=== PATIENT | male | born 1980 | race Caucasian/White ===

== ENCOUNTER → 2017-12-30 13:30 | Outpatient (CLI) | payer MEDICARE, SELFPAY ==
[2017-12-30 15:15] LABS: Platelet Count 178 K/mm3 (150-450)
[2017-12-30 15:33] LABS: AST(SGOT) 15 U/L (15-37); Alanine Aminotransfer ALT/SGPT 38 U/L (16-61)
[2017-12-30 15:36] LABS: Valproic Acid (Depakene) Level 50 ug/mL (50-100)
== END ==
PROVIDERS: Visit Provider Psychiatry & Neurology Psychiatry
DX: Z79.899 Other long term (current) drug therapy (principal)
CPT/HCPCS: 36415; 80164; 84450; 84460; 85049

== ENCOUNTER 2017-12-31 14:02 | Emergency (ER) | payer MEDICARE, SELFPAY ==
[2017-12-31 14:02] VITALS: BP 154/94; PULSE 91; RESP 18; TEMP 37.1; O2SAT 94; BMI 42.3
--- NOTE | 2017-12-31 14:28 | ED.DCSUM_ITS ---
- ER Visit Summary Date of Service: 12/31/17 Chief Complaint: Unable to kick respiratory bug History of Present Illness: The patient is a 37 M who is a smoker one half pack per day presents with URI symptoms started 2 weeks ago. He does complain of headache. Denies photophobia. Denies change in vision. Denies earache. Does complain of nasal congestion. Denies sore throat. He states has a cough productive of green colored sputum. He denies any chest pain. He denies dyspnea on exertion. He denies orthopnea PND. He has no GI, or musculoskeletal symptoms. He does complain of generalized weakness. He states he does not have a physician. Physical Examination: Blood pressure is elevated 154/94. Vital signs otherwise are unremarkable. He is not febrile nor is he hypoxic. BMI is 42.3. HEENT exam is remarkable for prominent right eye comparison the left. Pupils equal round reactive. Extra muscle intact. Gaze is conjugate. TMs normal. Nares patent. Posterior pharyngeal erythema XA. Uvula is midline. Trachea is midline. No stridor. There is cervical lymphadenopathy. Heart is regular without murmur, gallop or rub. Lungs are clear to auscultation with good air bilaterally. Abdomen soft nontender. There is no asymmetry, swelling, discoloration, leg vein distention, palpable cords or tenderness along the distribution of the deep venous system. Neuro exam is nonfocal. Test Results: None are indicated Emergency Department Course and Treatment: Patient was informed he has bronchitis. Is in his best interest to quit smoking. Since he does have a productive cough and has been ill for 2 weeks he was placed on doxycycline. Since vital signs i.e. heart rate respiratory rate pulse ox and temperature are normal for literature there is no indication for radiologic imaging. Treatment Plan: Prescription for doxycycline for 7 days. Next field discharged home and referral to Dr. Leighton Kern. Disposition: Discharged home Impression: Purulent bronchitis This note was generated with [employer] dictation software. It may contain incorrect words, spelling, and punctuation that were not noted in review of the chart prior to signing ED Disposition - Plan for ED Patient: Disposition: Home or Assisted Living Chief Complaint: General Illness Instructions: ED Upper Resp Infec Abx Tx Prescriptions: Doxycycline [Vibramycin] 100 mg PO BID #14 cap Referrals: Care Physician,No Primary [Primary Care Provider] - Leighton Kern MD [STAFF PHYSICIAN] - 1 Week if not improving Additional Instructions: It is in your best interest to stop smoking. I recommended throw your pack of cigarettes a away.
[2017-12-31] MEDS: Doxycycline 100 MG CAPSULE PO (14:33)
== END 2017-12-31 14:41 | disposition home or self-care (01) ==
LOC: ED 14:37
PROVIDERS: Emergency Provider Emergency Medicine
DX: J40 Bronchitis, not specified as acute or chronic (principal); E66.9 Obesity, unspecified; Z68.41 Body mass index [BMI] 40.0-44.9, adult; Z72.0 Tobacco use
CPT/HCPCS: 99283

== ENCOUNTER → 2018-06-16 13:43 | Outpatient (CLI) | payer MEDICARE, SELFPAY ==
[2018-06-16 15:10] LABS: Platelet Count 204 K/mm3 (150-450)
[2018-06-16 15:36] LABS: AST(SGOT) 19 U/L (15-37); Alanine Aminotransfer ALT/SGPT 48 U/L (16-61)
[2018-06-16 15:40] LABS: Valproic Acid (Depakene) Level 27 ug/mL (50-100)
== END ==
PROVIDERS: Referring Provider Psychiatry & Neurology Psychiatry; Visit Provider Psychiatry & Neurology Psychiatry
DX: Z79.899 Other long term (current) drug therapy (principal)
CPT/HCPCS: 36415; 80164; 84450; 84460; 85049

== ENCOUNTER → 2018-07-20 13:04 | Outpatient (CLI) | payer MEDICARE, SELFPAY ==
[2018-07-20 14:12] LABS: Valproic Acid (Depakene) Level 64 ug/mL (50-100)
== END ==
PROVIDERS: Referring Provider Psychiatry & Neurology Psychiatry; Visit Provider Psychiatry & Neurology Psychiatry
DX: Z79.899 Other long term (current) drug therapy (principal)
CPT/HCPCS: 36415; 80164

== ENCOUNTER → 2019-01-06 12:11 | Outpatient (CLI) | payer MEDICARE, SELFPAY ==
[2019-01-06 13:07] LABS: Amphetamine Urine VISTA NEGATIVE (<1000 ng/mL); Barbiturate Urine VISTA NEGATIVE (< 200 ng/mL); Benzodiazepine Urine VISTA POSITIVE (< 200 ng/mL); Cocaine Urine VISTA NEGATIVE (< 300 ng/mL); Ecstacy Urine VISTA NEGATIVE (< 500 ng/mL); Methadone Urine VISTA NEGATIVE (< 300 ng/mL); PCP Urine VISTA NEGATIVE (< 25 ng/mL); THC Urine VISTA POSITIVE (< 50 ng/mL); Vista UDS pH Range 5
== END ==
PROVIDERS: Referring Provider Psychiatry & Neurology Psychiatry; Visit Provider Psychiatry & Neurology Psychiatry
DX: F19.10 Other psychoactive substance abuse, uncomplicated (principal); Z79.899 Other long term (current) drug therapy
CPT/HCPCS: 80307

== ENCOUNTER → 2019-01-27 | Outpatient (CLI) | payer MEDICARE, SELFPAY ==
[2019-01-27 13:13] LABS: Platelet Count 207 K/mm3 (150-450)
[2019-01-27 13:43] LABS: Valproic Acid (Depakene) Level 62 ug/mL (50-100)
[2019-01-27 13:46] LABS: AST(SGOT) 12 U/L (15-37); Alanine Aminotransfer ALT/SGPT 31 U/L (16-61)
== END | disposition home or self-care (01) ==
PROVIDERS: Referring Provider Psychiatry & Neurology Psychiatry; Visit Provider Psychiatry & Neurology Psychiatry
DX: Z79.899 Other long term (current) drug therapy (principal)
CPT/HCPCS: 36415; 80164; 82140; 84450; 84460; 85049

== ENCOUNTER 2019-03-30 09:19 | Emergency (ER) | payer MEDICARE, SELFPAY ==
[2019-03-30 09:20] VITALS: BP 157/96; PULSE 115; RESP 16; TEMP 36.4; O2SAT 96; BMI 32.5
--- NOTE | 2019-03-30 09:39 | EKG12_ITS ---
Test Reason : HYPERGLYCEMIA Blood Pressure : / mmHG Vent. Rate : 101 BPM Atrial Rate : 101 BPM P-R Int : 160 ms QRS Dur : 094 ms QT Int : 340 ms P-R-T Axes : 053 -08 030 degrees QTc Int : 440 ms Sinus tachycardia Otherwise normal ECG Confirmed by ANGELA SIERRA ([id number]), order editor ROGER CALLAHAN ([id number]) on 03/31/2019 2:37:01 PM Referred By: JESSE Confirmed By:ANGELA SIERRA
--- NOTE | 2019-03-30 09:41 | ED.DCSUM_ITS ---
History of Present Illness Chief Complaint: Hyperglycemia Informant: Patient, - - Urgent care nurse practitioner Onset: Month(s) - 1 Context: Gradual Onset Timing: Continuous Associated Symptoms: Polydipsia, polyuria, abdominal discomfort Narrative: Patient has been vomiting frequently for the past month and polyuria polydipsia, was seen at urgent care today he has he has no PCP, had significant amount of glycosuria and hyperglycemia on the BGT and was sent to the ER for further evaluation. There is a family history of diabetes he has never been diagnosed with it that he knows of. - Past Medical History (1) Bipolar disorder with psychotic features Status: Chronic Past Medical History - Allergies and Home Meds Allergies/Adverse Reactions: Allergies No Known Allergies Allergy (Verified 03/30/19 09:22) Primary Care Physician: Care Physician,No Primary [Primary Care Provider] - Lives: Alone Smoking Status: Current every day smoker Drugs: None Review of Systems General: Reports: Malaise. Denies: Chills, Fever, Sweats Eyes: Denies: Visual changes - bilaterally, Diplopia ENT: Reports: - - dry mouth. Denies: Rhinorrhea, Sore throat Cardiovascular: Denies: Chest pain, Palpitations Respiratory: Denies: Dyspnea, Cough, Dyspnea on exertion Gastrointestinal: Denies: Abdominal pain, Nausea, Vomiting, Diarrhea, Melena, Hematochezia Genitourinary: Reports: Frequency. Denies: Dysuria, Hematuria Musculoskeletal: Denies: Myalgias, Arthralgias, Neck pain, Back pain, Swelling, Extremity Pain Skin: Denies: Rash, Wounds Neurological: Denies: Headache, Weakness, Numbness Psych: Reports: Anxiety. Denies: Suicidal thoughts, Suicidal ideations Endocrine: Reports: Polyuria, Polydipsia. Denies: Heat intolerance, Cold intolerance Hematologic: Denies: Easy bruising, Easy bleeding, Lymphadenopathy Physical Exam Vital Signs/Narrative: Vital Signs Temp Pulse Resp BP Pulse Ox 03/30/19 09:20 97.5 F L 115 H 16 157/96 H 96 Inital Vital Signs reviewed: Yes General: Well nourished, Well developed, No Acute Distress - well-appearing Head: Normocephalic, Atraumatic Eyes: Perrl, EOMI ENT: No rhinorrhea, Dry mucous membranes Neck: Supple, Nontender Cardiovascular: Regular rate, Regular rhythm, No murmurs, Tachycardia Respiratory: No distress, CTA bilaterally, Chest nontender Abdomen: Soft, Nondistended, Normal bowel sounds, Tender - mild diffuse. Negative for: Guarding, Rebound tenderness Back: Nontender, Normal Inspection Extremities: Nontender, No edema. Negative for: Calf Tenderness Skin: Normal color, No rash, No Trauma Neurological: Alert, Oriented x3, Cranial nerves II-XII grossly intact, Normal Strength, Normal Sensation Psychological: Normal affect, Normal Mood Diagnostic/Tx/Re-eval Laboratory Results 03/30/19 03/30/19 03/30/19 10:00 10:00 10:00 WBC 10.8 RBC 5.36 Hgb 16.9 H Hct 49.3 MCV 92.0 MCH 31.5 MCHC 34.3 RDW Std Deviation 42.7 RDW Coeff of Claude 12.6 Plt Count 218 MPV 11.7 Immature Gran % (Auto) 0.800 Neut % (Auto) 69.8 Lymph % (Auto) 21.0 [place] % (Auto) 7.3 Eos % (Auto) 0.6 Baso % (Auto) 0.5 Absolute Neuts (auto) 7.5 Absolute Lymphs (auto) 2.26 Nucleated RBC % 0 Specimen Type Sample Site VBG pH VBG pO2 VBG O2 Sat (Calc) VBG O2 Content VBG Base Excess POC Mix VBG pCO2 Pt Tmp O2 Delivery Device Blood Gas Notified Whom Blood Gas Notified Time Sodium 132 L Potassium 4.3 Chloride 98 Carbon Dioxide 25.0 Anion Gap 9 BUN 17 Creatinine 1.03 Estim Creat Clear Calc 107.78 Est GFR (MDRD) Af Amer 104 Est GFR (MDRD) Non-Af 86 BUN/Creatinine Ratio 16.5 Glucose 532 H* Calcium 9.3 Total Bilirubin 0.20 Direct Bilirubin 0.09 AST 12 L ALT 37 Alkaline Phosphatase 126 H Total Protein 8.0 Albumin 3.6 Globulin 4.4 H Urine Color Urine Clarity Urine pH Ur Specific [place] Urine Protein Urine Glucose (UA) Urine Ketones Urine Occult Blood Urine Nitrite Urine Bilirubin Urine Urobilinogen Ur Leukocyte Esterase Urine RBC Urine WBC Ur Squamous Epith Cells Urine Bacteria Urine Mucus Acetone Level NEGATIVE POC Glucose 03/30/19 03/30/19 03/30/19 10:05 10:55 11:56 WBC RBC Hgb Hct MCV MCH MCHC RDW Std Deviation RDW Coeff of Claude Plt Count MPV Immature Gran % (Auto) Neut % (Auto) Lymph % (Auto) [place] % (Auto) Eos % (Auto) Baso % (Auto) Absolute Neuts (auto) Absolute Lymphs (auto) Nucleated RBC % Specimen Type TASNEEM Sample Site OTHER VBG pH 7.39 VBG pO2 63 H VBG O2 Sat (Calc) 92 H VBG O2 Content 23 VBG Base Excess -3 L POC Mix VBG pCO2 Pt Tmp 36.5 L O2 Delivery Device Room Air Blood Gas Notified Whom ED Blood Gas Notified Time 1004 Sodium Potassium Chloride Carbon Dioxide Anion Gap BUN Creatinine Estim Creat Clear Calc Est GFR (MDRD) Af Amer Est GFR (MDRD) Non-Af BUN/Creatinine Ratio Glucose Calcium Total Bilirubin Direct Bilirubin AST ALT Alkaline Phosphatase Total Protein Albumin Globulin Urine Color Yellow Urine Clarity Clear Urine pH 6.0 Ur Specific [place] 1.010 Urine Protein Negative Urine Glucose (UA) 1000 H Urine Ketones 15 H Urine Occult Blood Negative Urine Nitrite Negative Urine Bilirubin Negative Urine Urobilinogen Normal Ur Leukocyte Esterase Negative Urine RBC 0 SEEN Urine WBC 0 SEEN Ur Squamous Epith Cells 0 SEEN Urine Bacteria 0 SEEN Urine Mucus 0 SEEN Acetone Level POC Glucose 395 H - Medical Decision Making Work-up is consistent with hyperglycemia due to diabetes and not diabetic ketoacidosis. No sign of any acute treatable infection. He was given fluids and insulin and his blood sugar came down to 277 he does not have a doctor. His parents see Dr. Galan and she is who he would prefer to see. I talked to a nurse at the office who said that she is taking new patients, but is not in within the next week, they will set him up to see a nurse practitioner christiano salter. Patient will call for an appointment. I am starting him on metformin immediate release 1000 mg twice daily, and I advised the office that he will need diabetic education at the first visit. They understand as does the patient and family, and they are comfortable with this overall plan. ED Disposition - Plan for ED Patient: Disposition: Home or Assisted Living Diagnosis: Hyperglycemia, Type 2 diabetes mellitus Instructions: HYPERGLYCEMIA, NEW ONSET (Diabetes Suspected) Prescriptions: Metformin HCl [Glucophage] 2 tab PO BID #60 tab Prescription Printed Referrals: Renee Galan MD [STAFF PHYSICIAN] - As soon as possible (call for appt, will be likely w/ Telly Padron)
[2019-03-30] MEDS: 0.9% Normal Saline 1,000 ML 1000 ML IV ×2 (10:04→11:11)
[2019-03-30] MEDS: Ondansetron 4 MG/2 ML Vial IV (10:04)
[2019-03-30 10:11] LABS: Blood Gas Specimen Type VEN; O2 Delivery Device Room Air; SITE OTHER; Time Given 1004; VBG BASE EXCESS -3 mmol/L (-1.0-3.5); VBG Bicarbonate 22 mmol/L (22-26); VBG Oxygen Content 23 mmol/L (23-33); VBG PO2 63 mmHg (25-40); VBG SO2 92 % (50-70); VBG pCO2 36.5 mmHg (41-51); VBG pH 7.39 (7.32-7.42)
[2019-03-30 10:12] LABS: Absolute Lymphocyte Count 2.26 X10^3/uL (0.83-4.51); Absolute Neutrophil Count 7.5 X10^3/uL (2.0-7.7); Basophil# 0.05 X10^3/uL; Basophil% 0.5 % (0-1); Eosinophil# 0.06 X10^3/uL; Eosinophils% 0.6 % (0-5); Hematocrit 49.3 % (40-54); Hemoglobin 16.9 g/dL (13.0-16.5); Lymphocyte # 2.26 X10^3/ul (4.0); Mean Corp Hgb Conc 34.3 g/dL (32-36); Mean Corpuscular Hgb 31.5 pg (27.0-32.0); Mean Platelet Vol. 11.7 fl (6.2-12.0); Monocyte# 0.79 X10^3/uL; Monocyte% 7.3 % (0-10); NRBC Flagged by Analyzer 0 % (0-5); Neutrophil % 69.8 % (47-70); Platelet Count 218 K/mm3 (150-450); RBC Distribution Width CV 12.6 % (11.6-14.6); RBC Distribution Width SD 42.7 fl (35.1-43.9); Red Blood Count 5.36 M/mm3 (4.6-6.2); White Blood Count 10.8 K/mm3 (4.4-11.0)
[2019-03-30 10:40] LABS: AST(SGOT) 12 U/L (15-37); Alanine Aminotransfer ALT/SGPT 37 U/L (16-61); Albumin, Serum 3.6 g/dL (3.2-5.0); Alkaline Phosphatase 126 U/L (45-117); Anion Gap 9 (5-15); BUN 17 mg/dL (7-18); BUN/Creat Ratio 16.5 RATIO (10-20); Bilirubin, Direct 0.09 mg/dL (0.00-0.30); Calcium,Total 9.3 mg/dL (8.5-10.1); Chloride 98 mmol/L (98-107); Creatinine, Serum 1.03 mg/dL (0.70-1.30); EST Glomerular Filtration Rate 86 mL/min (>60); Est Glom Filt Rate - Afr Amer 104 mL/min (>60); Estimated Creatinine Clearance 107.78 ml/min; Globulin 4.4 g/dL (2.2-4.2); Glucose 532 mg/dL (74-106); Potassium 4.3 mmol/L (3.5-5.1); Sodium Level 132 mmol/L (136-145)
[2019-03-30 11:02] LABS: Bacteria 0 SEEN /hpf (None Seen); Mucous, Urine 0 SEEN /hpf (<or=2+); Red Blood Cells-Urine 0 SEEN /hpf (0-5); Squamous Epithelial Cells - UA 0 SEEN /hpf (0-5); White Blood Cells 0 SEEN /hpf (0-5)
[2019-03-30 11:05] LABS: Color, Urine Yellow (Yellow); Glucose, Dipstick 1000 mg/dl (Normal); Ketone-Dipstick 15 mg/dl (Negative); Leukocyte Esterase-Dipstick Negative /ul (Negative); Nitrite-Dipstick Negative (Negative); Occult Blood-Urine Negative /ul (Negative); Protein-Dipstick Negative (Negative); Urine Bilirubin Dipstick Negative (Negative); Urine Clarity Clear (Clear); Urine Urobilinogen Normal (Normal)
[2019-03-30 11:17] VITALS: BP 111/77; PULSE 92; RESP 18; O2SAT 95
[2019-03-30] MEDS: Insulin Lispro 100 UNIT/ML INSULN.PEN 16 UNIT SC (11:57)
[2019-03-30 12:10] LABS: Bedside Glucose 395 mg/dL (70-110)
[2019-03-30 13:00] VITALS: BP 109/65; PULSE 84; RESP 16; O2SAT 94
[2019-03-30 13:51] LABS: Bedside Glucose 277 mg/dL (70-110)
[2019-03-30 14:12] VITALS: BP 109/65; PULSE 87; RESP 16; O2SAT 97
== END 2019-03-30 14:14 | disposition home or self-care (01) ==
PROVIDERS: Emergency Provider Emergency Medicine
DX: E11.65 Type 2 diabetes mellitus with hyperglycemia (principal); Z83.3 Family history of diabetes mellitus; F31.9 Bipolar disorder, unspecified; F17.200 Nicotine dependence, unspecified, uncomplicated
CPT/HCPCS: 80048; 80076; 81001; 82009; 82803; 82962; 85025; 93005; 96361; 96374; 99283; J7030; A4216; J2405

== ENCOUNTER 2019-06-29 19:50 | Emergency (ER) | payer MEDICARE, SELFPAY ==
[2019-06-29 19:50] VITALS: BP 148/86; PULSE 102; RESP 16; TEMP 36.6; O2SAT 95; BMI 39.4
[2019-06-29 19:54] VITALS: RESP 16
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
[2019-06-29 21:04] VITALS: BP 121/90; PULSE 95; RESP 16; O2SAT 98
== END 2019-06-29 21:04 | disposition home or self-care (01) ==
LOC: ED 20:13
PROVIDERS: Emergency Provider Emergency Medicine; Family Provider Internal Medicine; PCP Internal Medicine
DX: S16.1XXA Strain of muscle, fascia and tendon at neck level, initial encounter (principal); V47.6XXA Car passenger injured in collision with fixed or stationary object in traffic accident, initial encounter; Y93.9 Activity, unspecified; Y92.410 Unspecified street and highway as the place of occurrence of the external cause; Y99.9 Unspecified external cause status; E11.9 Type 2 diabetes mellitus without complications; F31.9 Bipolar disorder, unspecified; F17.200 Nicotine dependence, unspecified, uncomplicated
CPT/HCPCS: 72040; 99285; A4216

== ENCOUNTER → 2019-07-19 09:54 | Outpatient (CLI) | payer MEDICARE, SELFPAY ==
[2019-06-29 19:50] VITALS: BMI 39.4
[2019-07-19 10:31] LABS: Platelet Count 283 K/mm3 (150-450)
[2019-07-19 11:04] LABS: Valproic Acid (Depakene) Level 38 ug/mL (50-100)
[2019-07-19 11:20] LABS: AST(SGOT) 7 U/L (15-37); Alanine Aminotransfer ALT/SGPT 15 U/L (16-61)
== END ==
PROVIDERS: Family Provider Internal Medicine; PCP Internal Medicine; Referring Provider Psychiatry & Neurology Psychiatry; Visit Provider Psychiatry & Neurology Psychiatry
DX: Z79.899 Other long term (current) drug therapy (principal)
CPT/HCPCS: 36415; 80164; 82140; 84450; 84460; 85049

== ENCOUNTER → 2020-02-08 | Outpatient (CLI) | payer MEDICARE, MEDICAID, SELFPAY ==
[2020-02-08 10:03] LABS: Platelet Count 279 K/mm3 (150-450)
[2020-02-08 11:04] LABS: AST(SGOT) 9 U/L (15-37); Alanine Aminotransfer ALT/SGPT 19 U/L (16-61); Valproic Acid (Depakene) Level 61 ug/mL (50-100)
== END | disposition home or self-care (01) ==
LOC: LAB 09:29
PROVIDERS: PCP Internal Medicine; Referring Provider Psychiatry & Neurology Psychiatry; Visit Provider Psychiatry & Neurology Psychiatry
DX: Z79.899 Other long term (current) drug therapy (principal)
CPT/HCPCS: 36415; 80164; 82140; 84450; 84460; 85049

== ENCOUNTER 2021-05-18 09:27 | Emergency (ER) | payer MEDICARE, MEDICAID, SELFPAY ==
[2021-05-18 09:28] VITALS: BP 157/88; PULSE 96; RESP 14; TEMP 35.8; O2SAT 100; BMI 34.0
--- NOTE | 2021-05-18 10:45 | RAD_ITS ---
STUDY: X-RAY CHEST REASON FOR EXAM: Male, 40 years old. Dyspnea TECHNIQUE: Single AP portable view of the chest. COMPARISON: None. FINDINGS: The lungs are clear and expanded. There is no demonstrated pleural abnormality. Normal size heart. Normal mediastinum and juan. Normal visualized pulmonary arteries. Normal visualized aortic arch and descending thoracic aorta. Normal visualized thoracic spine. Normal visualized ribs, clavicles, and shoulders. There is no demonstrated abnormality of the visualized soft tissue structures of the upper abdomen. RAD/Chest 1 View (Portable) IMPRESSION: Normal x-ray examination of the chest. Electronically Signed: Maik Blum MD at 11:07 EDT , Service support ,
[2021-05-18 10:49] LABS: Absolute Lymphocyte Count 2.43 X10^3/uL (0.83-4.51); Absolute Neutrophil Count 12.2 X10^3/uL (2.0-7.7); Basophil# 0.07 X10^3/uL; Basophil% 0.4 % (0-1); Eosinophil# 0.34 X10^3/uL; Eosinophils% 2.1 % (0-5); Hematocrit 46.2 % (40-54); Lymphocyte # 2.43 X10^3/ul (0.83-4.51); Lymphocyte % 14.8 % (19-41); Mean Corp Hgb Conc 32.5 g/dL (32-36); Mean Corpuscular Hgb 30.2 pg (27.0-32.0); Mean Platelet Vol. 10.5 fl (6.2-12.0); Monocyte# 1.29 X10^3/uL; Monocyte% 7.9 % (0-10); NRBC Flagged by Analyzer 0 % (0-5); Neutrophil # 12.23 X10^3/uL (2.7-7.7); Neutrophil % 74.4 % (47-70); Platelet Count 240 K/mm3 (150-450); RBC Distribution Width SD 47.8 fl (35.1-43.9); Red Blood Count 4.97 M/mm3 (4.6-6.2); White Blood Count 16.4 K/mm3 (4.4-11.0)
--- NOTE | 2021-05-18 11:03 | EDS_ITS ---
HPI History of Present Illness Chief Complaint: Shortness of Breath Informant: patient Onset/Context/Timing Onset: Days (4-5) Context: gradual Timing: Continuous Quality: Positive for Dyspnea on exertion Worsened by: Exertion and Lying flat Relieved by: Nothing Associated Symptoms cough, rhinorrhea, fever, sore throat, subjective and chills Chest Pain: Positive for None Narrative Narrative: Patient presents with shortness of breath that has been getting worse over the past 4 to 5 days. Patient states it is gradually getting worse. Patient states it has been constant. Patient admits to some shortness of breath with exertion. Patient states his breathing is also worse whenever he lays flat. Patient admits to a cough but denies any sputum production. Patient admits to a sore throat and rhinorrhea. Patient also admits to subjective fevers and chills. Patient denies any chest pain. [facility] Medical History Acute pancreatitis COPD (chronic obstructive pulmonary disease) Diabetes Glaucoma Home Medications divalproex [Depakote] 500 mg PO TID 02/24/15 [History Last Taken 07/27/16 16:00] diazepam 10 mg PO TID PRN 03/30/19 [History Last Taken Unknown] dapagliflozin [Farxiga] 5 mg PO DAILY 05/18/21 [History Last Taken Unknown] latanoprost 1 drp EACH EYE DAILY 05/18/21 [History Last Taken Unknown] omeprazole 40 mg PO DAILY 05/18/21 [History Last Taken Unknown] quetiapine 200 mg PO DAILY 05/18/21 [History Last Taken Unknown] Allergy/AdvReac Type Severity Reaction Status Date / Time ibuprofen AdvReac Other Verified 05/18/21 09:28 Surgical History no surgical history no surgical history Social History Smoking Status: Current every day smoker tobacco type: cigarettes ROS ROS ED Constitutional Constitutional ED: Reports chills and fever(s) Eyes Eyes: Denies blurry vision or change in vision ENT ENT ED: Reports rhinorrhea; Denies sore throat Cardiovascular Cardiovascular: Denies chest pain or palpitations Respiratory/Chest Respiratory/Chest: Reports cough and dyspnea Gastrointestinal Gastrointestinal: Reports nausea and vomiting Genitourinary Genitourinary ED: Denies dysuria or hematuria Musculoskeletal Musculoskeletal: Denies back pain or neck pain Integumentary Reports rash; Denies abscess Neurologic Neurologic: Denies headache(s) or weakness Allergic/Immunologic Allergic/Immunologic ED: Denies mouth swelling or urticaria EXAM Physical Exam Const Vital Signs: 05/18/21 09:28 05/18/21 09:41 Temperature 96.5 F L Temperature Source Temporal Pulse Rate 96 Respiratory Rate 14 Respiratory Effort Normal Non-Labored Respiratory Depth Normal Respiratory Pattern Normal Blood Pressure 157/88 H Blood Pressure Mean 111 Pulse Ox 100 Oxygen Delivery Method Room Air Room Air Positive well nourished and well developed General Appearance ED: well developed HEENT Reports moist mucous membranes Neck supple and no JVD Resp normal respiratory effort and clear to auscultation bilaterally Cardio regular rate, regular rhythm and no murmurs GI normal to inspection, nondistended, normoactive bowel sounds and non-tender Palpation: soft Extremity normal to inspection General Extremety ED: Negative for edema or tenderness General Extremity: Negative for edema Neuro oriented x3, CN's II-XII intact bilaterally and no sensory deficits noted Sensorium / Orientation: alert Motor Exam: strength 5/5 throughout Psych mental status grossly normal Skin no rashes or lesions noted MDM MDM MDM Narrative Medical decision making narrative: COVID-19 rapid antigen was obtained and was negative. CBC shows a leukocytosis of 16.4. Comprehensive metabolic profile was essentially within normal limits. Lipase was normal. Portable 1 view chest x-ray was obtained. On my interpretation, lung corado are clear. There is normal cardiac silhouette. Bony thorax is normal. There is no acute process noted. Radiologist also interpreted the x-ray and agrees. Patient was given 2 puffs of an albuterol inhaler. Prior to patient being discharged, he removed his own IV and got up and left. Patient did not sign his discharge instructions. Patient left prior to completing discharge. Lab Data Attestation: I reviewed the patient's lab results. Labs: Laboratory Results - last 24 hr 05/18/21 05/18/21 10:40 10:40 WBC 16.4 H RBC 4.97 Hgb 15.0 Hct 46.2 MCV 93.0 MCH 30.2 MCHC 32.5 RDW Std Deviation 47.8 H RDW Coeff of Claude 14.0 Plt Count 240 MPV 10.5 Immature Gran % (Auto) 0.400 Neut % (Auto) 74.4 H Lymph % (Auto) 14.8 L [place] % (Auto) 7.9 Eos % (Auto) 2.1 Baso % (Auto) 0.4 Absolute Neuts (auto) 12.2 H Absolute Lymphs (auto) 2.43 Nucleated RBC % 0 Sodium 142 Potassium 4.5 Chloride 113 H Carbon Dioxide 27.0 Anion Gap 2 L BUN 20 H Creatinine 0.87 Estim Creat Clear Calc 125.12 Est GFR (MDRD) Af Amer 125 Est GFR (MDRD) Non-Af 103 BUN/Creatinine Ratio 23.0 H Glucose 135 H Calcium 8.7 Total Bilirubin 0.20 AST 11 L ALT 18 Alkaline Phosphatase 64 Total Protein 7.1 Albumin 3.3 Globulin 3.8 Albumin/Globulin Ratio 0.9 Lipase 156 Radiography Chest X-Ray - ED: 1 View, Read by ED Physician, Read by Radiologist and Normal Diagnostic Testing: Radiology Impression Chest X-Ray 05/18/21 10:45 IMPRESSION: Normal x-ray examination of the chest. Electronically Signed: Maik Blum MD at 11:07 EDT , Service support , Discharge Plan Triage Chief Complaint: Shortness of Breath ED Provider: Tano Emerson Dx/Rx/DC Orders Clinical Impression: Viral illness Instructions: ED URI, Viral, No Abx (Adult) Prescriptions: No Action divalproex [Depakote] 500 MG tablet,delayed release (DR/EC) 500 mg PO TID RF: 0 diazepam 10 mg tablet 10 mg PO TID PRN (Reason: Anxiety) RF: 0 latanoprost 0.005 % drops 1 drp EACH EYE DAILY RF: 0 omeprazole 40 mg capsule,delayed release(DR/EC) 40 mg PO DAILY RF: 0 quetiapine 200 mg tablet extended release 24 hr 200 mg PO DAILY RF: 0 Farxiga 5 mg tablet 5 mg PO DAILY RF: 0 Primary Care Provider: Care Physician,No Primary Referrals: Gera Saldaña MD [STAFF PHYSICIAN] - Disposition Disposition: [facility] Discharge Date/Time: 05/18/21 13:38
[2021-05-18 11:04] LABS: ALB/GLOB Ratio 0.9 RATIO (0.9-2.4); AST(SGOT) 11 U/L (15-37); Alanine Aminotransfer ALT/SGPT 18 U/L (16-61); Albumin, Serum 3.3 g/dL (3.2-5.0); Alkaline Phosphatase 64 U/L (45-117); Anion Gap 2 (5-15); BUN 20 mg/dL (7-18); Calcium,Total 8.7 mg/dL (8.5-10.1); Chloride 113 mmol/L (98-107); Creatinine, Serum 0.87 mg/dL (0.70-1.30); EST Glomerular Filtration Rate 103 mL/min (>60); Est Glom Filt Rate - Afr Amer 125 mL/min (>60); Estimated Creatinine Clearance 125.12 ml/min; Globulin 3.8 g/dL (2.2-4.2); Glucose 135 mg/dL (74-106); Lipase 156 U/L (73-393); Potassium 4.5 mmol/L (3.5-5.1); Protein, Total 7.1 g/dL (6.4-8.2); Sodium Level 142 mmol/L (136-145)
--- NOTE | 2021-05-18 13:34 | ED.RN ---
PT WAS PACING IN AND OUT OF THE ROOM CUSSING AND SWEARING THAT IT HAD BEEN 2 HRS AND HE ALREADY GOT THE TEXT STATING HE DIDNT HAVE COVID. EXPLAINED TO PT THE DR WOULD BE IN SOON HE COULD AND THE PT STATED FUCK THAT, TAKE THIS IV OUT AND IM OUT!IV WAS REMOVED AND PT AMBULATED FROM ED WHILE TALKING ON THE PHONE. PT HAD NO SIGNS OF SOB OR DISTRESS THROUGHOUT THIS INTERACTION OR WHILE HE WAS RAPIDLY AMBULATING FROM ER/ PHYSICIAN NOTIFIED
== END 2021-05-18 13:38 | disposition left against medical advice (07) ==
LOC: ED 10:34
PROVIDERS: Emergency Provider Emergency Medicine
DX: B34.9 Viral infection, unspecified (principal); J44.9 Chronic obstructive pulmonary disease, unspecified; E11.9 Type 2 diabetes mellitus without complications; F17.210 Nicotine dependence, cigarettes, uncomplicated; Z79.899 Other long term (current) drug therapy
CPT/HCPCS: 71045; 80053; 83690; 85025; 87426; 99282; A4216